=== PATIENT | female | born 1990 ===

== ENCOUNTER 2023-10-09 13:33 | Emergency (ER) | payer MEDICAID ==
[~2023-10-09] VITALS: Ht 152.4 cm; Wt 54.4 kg
[2023-10-09 15:38] VITALS: BP 103/60; PULSE 81; RESP 16; TEMP 98.6; O2SAT 99
== END 2023-10-09 15:40 | disposition home or self-care (01) ==
LOC: ER 13:35
DX: Z04.1 Encounter for examination and observation following transport accident (principal); V87.7XXA Person injured in collision between other specified motor vehicles (traffic), initial encounter; Y93.89 Activity, other specified; Y92.89 Other specified places as the place of occurrence of the external cause; Y99.8 Other external cause status
CPT/HCPCS: 99281

== ENCOUNTER 2024-03-14 04:50 | Outpatient (CLI) | payer MEDICAID | END 2024-03-14 23:59 | disposition home or self-care (01) | LOC: LAB 04:50 → EDBD 04:50 → LAB 23:59 | DX: Z01.83 Encounter for blood typing (principal) | CPT/HCPCS: 36415; 86900; 86901 ==